=== PATIENT | female | born 1985 | race Caucasian/White ===

== ENCOUNTER → 2017-03-21 | Outpatient (CLI) | payer BC ==
[2017-03-21 08:09] LABS: ALT 41 U/L (9-52); AST 24 U/L (14-36)
--- NOTE | 2017-03-21 09:06 | US ---
EXAMINATION TYPE: US abdomen limited DATE OF EXAM: 03/21/2017 COMPARISON: NONE CLINICAL HISTORY: R10.11 abd pain. RUQ pain, patient is 18 weeks EXAM MEASUREMENTS: Liver Length: 13.7 cm Gallbladder Wall: 0.3 cm CBD: 0.3 cm Right Kidney: 11.6 x 3.8 x 4.1 cm Pancreas: limited evaluation due to overlying bowel content Liver: visualized portions appear wnl Gallbladder: no evidence of stones Evidence for sonographic Alston's sign: no CBD: wnl Right Kidney: no evidence of hydronephrosis or mass IMPRESSION: Unremarkable limited abdominal ultrasound with homogeneous hepatic echotexture and no rios dence of right-sided hydronephrosis. No sonographic evidence of cholelithiasis or acute cholecystitis .
== END | disposition home or self-care (01) ==
LOC: RADUSWWP 06:49
PROVIDERS: ATTEND Obstetrics & Gynecology
DX: O26.892 Other specified pregnancy related conditions, second trimester (principal); Z3A.18 18 weeks gestation of pregnancy
CPT/HCPCS: 76705; 84450; 84460

== ENCOUNTER 2017-08-19 15:43 | Inpatient (IN) | payer BC ==
[2017-08-22] MEDS ORDERED: OXYTOCIN 10 UNIT/ML 1 ML VIAL IM PRN (06:19)
[2017-08-22] MEDS ORDERED: METHYLERGONOVINE 0.2 MG/ML 1 ML AMP IM PRN (06:19)
[2017-08-22] MEDS ORDERED: TERBUTALINE 1 MG/ML VIAL SQ PRN (06:19)
[2017-08-22] MEDS ORDERED: CARBOPROST TROMETHAMINE 250 MCG/ML 1 ML AMP IM PRN (06:19)
[2017-08-22] MEDS ORDERED: LIDOCAINE 1% (PF) 10 MG/ML (30 ML SDV) SQ PRN (06:19)
[2017-08-22 06:33] VITALS: BMI 27.6
[2017-08-22] MEDS: LACTATED RINGERS 1,000 ML IV SCH ×2 (06:34→20:14)
[2017-08-22 06:46] LABS: Basophils % (A) 0 %; Eosinophils # (A) 0.1 k/uL (0-0.7); Eosinophils % (A) 1 %; HCT 38.8 % (34.0-46.0); Lymphocytes # (A) 1.8 k/uL (1.0-4.8); Lymphocytes % (A) 14 %; MCH 33.1 pg (25.0-35.0); MCHC 33.4 g/dL (31.0-37.0); MCV 99.1 fL (80.0-100.0); Mean Platelet Volume 9.1; Monocytes % (A) 8 %; Neutrophils # (A) 9.4 k/uL (1.3-7.7); Neutrophils % (A) 75 %; Platelet Count 201 k/uL (150-450); RBC 3.92 m/uL (3.80-5.40); RDW 12.7 % (11.5-15.5); WBC 12.5 k/uL (3.8-10.6)
[2017-08-22] MEDS ORDERED: BUTORPHANOL 1 MG/ML 1 ML VIAL IV PRN (08:22)
[2017-08-22] MEDS: OXYTOCIN 20 UNITS/1000 ML NS 1,000 ML IV SCH (08:25)
--- NOTE | 2017-08-22 08:28 | P.HPOB ---
History of Present Illness H&P Date: 08/22/17 Chief Complaint: 40-3/7 weeks, oligohydramnios The patient is a 31-year-old 1 para 0 admitted at 40-3/7 weeks as established by last menstrual period and confirmed by 8 week ultrasound. She is admitted for postdates induction of labor having been found with oligohydramnios by ultrasound yesterday, a total amniotic fluid index of 4.5 cm. On admission, heart tones have been relatively flat with occasional subtle late decelerations. At the time of my examination, there is no nonreassuring heart tracing noted. Her has been entirely uncomplicated and group B strep status is negative. We will proceed with a trial of labor. Obstetrical history: 1 para 0 with current statistics listed above. EDC of 08/19/2017 was established by last menstrual period and confirmed by an 8 week ultrasound. Laboratory workup demonstrates a blood type of O+ with a negative antibody screen. Rubella status is immune. All other laboratory workup was within normal limits. One hour Glucola was elevated but followed by a normal three-hour glucose tolerance test. Group B strep status is negative. Gynecologic history: Unremarkable with no history of any infections to include STDs. Review of Systems Review of systems is confined to history of present illness. Past Medical History Past Medical History: No Reported History History of Any Multi-Drug Resistant Organisms: None Reported Additional Past Surgical History / Comment(s): Back Surgery 06/20/2016 Past Anesthesia/Blood Transfusion Reactions: No Reported Reaction Past Psychological History: No Psychological Hx Reported Smoking Status: Never smoker Past Alcohol Use History: None Reported Past Drug Use History: None Reported - Past Family History Mother Family Medical History: Diabetes Mellitus Additional Family Medical History / Comment(s): Type II Medications and Allergies Home Medications Medication Instructions Recorded Confirmed Type Pnv No.95/Ferrous Fum/Folic AC 1 tab PO DAILY 08/22/17 08/22/17 History [ Multivitamin Tablet] Allergies Allergy/AdvReac Type Severity Reaction Status Date / Time No Known Allergies Allergy Verified 08/22/17 06:15 Exam - Vital Signs Vital signs: Vital Signs Temp Pulse Resp BP 08/22/17 06:27 96.7 F L 96 16 138/82 Intake and Output 08/21/17 08/22/17 08/22/17 22:59 06:59 14:59 Other: Weight 82.554 kg In general, this is a well-developed, well-nourished white female in no acute distress. Her heart has a regular rhythm and rate without murmur. Her lungs are clear to auscultation bilaterally in all molina. Her abdomen is gravid, nondistended, has normal active bowel sounds, is soft, nontender, and without any palpable masses aside from uterine fundus. Her extremities are without any cyanosis, clubbing, or significant edema and are nontender to palpation bilaterally. Digital cervical examination demonstrates her cervix to be 2-3 cm dilated, 50% effaced, the vertex in presentation at -2 station. Artificial rupture of membranes is carried out demonstrating what appears to be very minimal lightly meconium-stained fluid. Results Result Diagrams: 08/22/17 06:30 Abnormal Lab Results - Last 24 Hours (Table) 08/22/17 Range/Units 06:30 WBC 12.5 H (3.8-10.6) k/uL Neutrophils # 9.4 H (1.3-7.7) k/uL Assessment and Plan (1) Oligohydramnios Current Visit: Yes Status: Acute Code(s): O41.00X0 - OLIGOHYDRAMNIOS, UNSP TRIMESTER, NOT APPLICABLE OR UNSP SNOMED Code(s): 68968957 (2) Post-dates Current Visit: Yes Status: Acute Code(s): O48.0 - POST-TERM SNOMED Code(s): 61862007 Plan: The patient has been admitted for induction of labor. There was some initial concern regarding heart tones but trial of labor will be carried out. Pitocin augmentation will be started and close maternal and surveillance be practiced. Artificial rupture of membranes has been carried out. She is a good candidate for IV or epidural analgesia if she chooses. Should nonreassuring heart tones reappear, the patient and her significant other are aware that we would proceed to delivery.
[2017-08-22] MEDS ORDERED: CITRIC ACID-SODIUM CITRATE 15 ML CUP PO ONE (10:41)
[2017-08-22] MEDS ORDERED: ceFAZolin IN SWFI 2 GM/20 ML SYRINGE IVP ONE (10:41)
[2017-08-22] MEDS ORDERED: ONDANSETRON 4 MG/2 ML VIAL ONE (12:26)
[2017-08-22] MEDS ORDERED: OXYTOCIN 10 UNIT/ML 1 ML VIAL ONE (12:26)
[2017-08-22] MEDS ORDERED: MORPHINE SULFATE (PF) 0.3 MG/0.3 ML SYR ONE (12:26)
[2017-08-22] MEDS ORDERED: KETOROLAC 30 MG/ML 1 ML VIAL ONE (12:26)
[2017-08-22] MEDS ORDERED: NALBUPHINE 10 MG/ML AMPUL ONE (12:26)
[2017-08-22] MEDS ORDERED: Acetaminophen-Codeine 300-30mg TAB PO PRN ×2 (13:18)
[2017-08-22] MEDS ORDERED: METOCLOPRAMIDE 5 MG/ML 2 ML VIAL IVP PRN (13:18)
[2017-08-22] MEDS ORDERED: diphenhydrAMINE 50 MG/ML 1 ML VIAL IVP PRN ×3 (13:18→14:03)
[2017-08-22] MEDS ORDERED: NALOXONE 0.4 MG/ML 1 ML VIAL IV PRN ×2 (13:18→14:03)
[2017-08-22] MEDS ORDERED: ONDANSETRON 4 MG/2 ML VIAL IVP PRN ×2 (13:18→14:03)
[2017-08-22] MEDS ORDERED: ACETAMINOPHEN TAB 325 MG TAB PO PRN (13:18)
[2017-08-22] MEDS ORDERED: ZOLPIDEM 5 MG TAB PO PRN (13:18)
[2017-08-22] MEDS ORDERED: diphenhydrAMINE 50 MG CAP PO PRN (13:18)
[2017-08-22] MEDS ORDERED: LANOLIN CREAM 5 GM TUBE TOPICAL PRN (13:18)
[2017-08-22] MEDS ORDERED: SIMETHICONE 80 MG CHEWABLE PO PRN (13:18)
[2017-08-22] MEDS ORDERED: diphenhydrAMINE 25 MG CAP PO PRN (13:18)
--- NOTE | 2017-08-22 13:27 | P.OP ---
Date of Procedure: 08/22/17 Preoperative Diagnosis: #1. 40-3/7 weeks intrauterine #2. Oligohydramnios #3. intolerance of labor Postoperative Diagnosis: Same plus #4. Occiput transverse position Procedure(s) Performed: #1. Primary low-transverse section Anesthesia: spinal Surgeon: Gaurav Roth Acute Care Nurse #1: Anabel Santiago Estimated Blood Loss (ml): 400 IV fluids (ml): 800 Urine output (ml): 400 Pathology: other (Placenta) Condition: stable Disposition: floor Operative Findings: Preoperatively, the patient had been admitted for postdates induction of labor secondary to oligohydramnios. She underwent artificial rupture of membranes with minimal probable meconium-stained fluid noted. After initiation of Pitocin , heart tones demonstrated repetitive late decelerations requiring the Pitocin to be stopped. A second attempt was made resulting in the same findings. As result, the patient was counseled regarding section to which she agreed. heart tones remained otherwise stable while not on Pitocin. She was taken to the operating room where she was delivered of a viable 6 lbs. 6 oz. baby boy with Apgars of 8 at 1 minute and 9 at 5 minutes delivered in the left occiput transverse position. The placenta was delivered manually, intact, and grossly normal although that was fairly small with a grossly normal three-vessel cord. The uterus, tubes, and ovaries were otherwise normal to inspection though there are some very small, less than half centimeter subserosal fibroid scattered over the fundus and posterior uterus, perhaps 3 in total. Description of Procedure: The patient was prepped and draped in usual fashion after spinal anesthesia was administered by the anesthesiologist. A Pfannenstiel incision was made and extended into the abdominal cavity without difficulty. The bladder was noted to be significantly distal to the intended site of uterine incision and was left intact. A 2 cm incision was made in the transverse plane of the lower uterine segment to enter the uterus at which time moderate meconium-stained fluid was again noted. The incision was extended in both directions using the bandage scissors and bluntly. The head was delivered up and through the incision in the left occiput transverse position where the nose and mouth were thoroughly suctioned on the abdomen. The remainder of the infant was delivered onto the field where the cord was doubly clamped, cut, and the infant passed for resuscitative measures with weight and Apgars as noted above. A segment of cord was doubly clamped, cut, and set aside should cord gases become necessary. The placenta was delivered manually and intact though the membranes remained inside were swept and assessment maneuver. The uterus was exteriorized and the interior cavity of the uterus swept of any remaining placental and membranous fragments. The margins of the incision were grasped with Tomlinson clamps and the incision was closed in 2 layers. The first layer was a running locking stitch of 0 chromic catgut followed by a running imbricating stitch of 0 chromic catgut, each from margin to margin. Any small points of bleeding were made hemostatic with the Bovie. The posterior cul-de-sac was suctioned using a guard and the uterine and ovarian findings were essentially normal as noted above. The uterus was replaced within the abdominal cavity and the gutters swept of any remaining blood, fluid, or clot. The incision was reexamined and any small points of bleeding were again made hemostatic with the Bovie. Once hemostasis was established, the parietal peritoneum was loosely reapproximated and layer of muscles examined and found to be hemostatic. The fascia was closed with a single running stitch of 0 Vicryl proceeding from margin to margin. The subcutaneous tissues were irrigated, made hemostatic with the Bovie , and reapproximated with a running stitch of 30 plain catgut. The skin was reapproximated with a running subcuticular stitch of 4-0 Vicryl followed by half -inch Steri-Strips placed with Mastisol. Estimated blood loss for the case is roughly 400 mL. There were no complications. All sponge, instrument, and needle counts were correct. The patient tolerated the procedure well and proceeded to the recovery room in stable condition. Both mother and infant are resting comfortably in recovery.
[2017-08-22] MEDS ORDERED: OXYTOCIN 20 UNITS/1000 ML NS 1,000 ML IV SCH (13:30)
[2017-08-22] MEDS ORDERED: LACTATED RINGERS 1,000 ML IV SCH (13:30)
[2017-08-22] MEDS ORDERED: MORPHINE SULFATE 4MG/4ML SYRG IVP PRN (14:03)
[2017-08-22] MEDS ORDERED: MORPHINE SULF 5MG/10ML VL IVP PRN (14:03)
[2017-08-22] MEDS ORDERED: KETOROLAC 30 MG/ML 1 ML VIAL IVP PRN (14:03)
[2017-08-22] MEDS: SENNOSIDES-DOCUSATE SODIUM 1 EACH TAB PO SCH (23:40)
[2017-08-23] MEDS: KETOROLAC 30 MG/ML 1 ML VIAL IVP PRN ×2 (00:58→08:45)
[2017-08-23] MEDS: LACTATED RINGERS 1,000 ML IV SCH ×3 (02:56→20:27)
[2017-08-23 07:25] LABS: Basophils % (A) 0 %; Eosinophils # (A) 0.1 k/uL (0-0.7); Eosinophils % (A) 0 %; HCT 33.6 % (34.0-46.0); Lymphocytes # (A) 1.4 k/uL (1.0-4.8); Lymphocytes % (A) 10 %; MCH 32.7 pg (25.0-35.0); MCHC 32.8 g/dL (31.0-37.0); MCV 99.7 fL (80.0-100.0); Mean Platelet Volume 8.8; Monocytes # (A) 0.8 k/uL (0-1.0); Monocytes % (A) 6 %; Neutrophils # (A) 11.5 k/uL (1.3-7.7); Neutrophils % (A) 82 %; Platelet Count 180 k/uL (150-450); RBC 3.37 m/uL (3.80-5.40); RDW 12.5 % (11.5-15.5); WBC 13.9 k/uL (3.8-10.6)
[2017-08-23] MEDS: OXYTOCIN 20 UNITS/1000 ML NS 1,000 ML IV SCH (07:39)
[2017-08-23] MEDS: SENNOSIDES-DOCUSATE SODIUM 1 EACH TAB PO SCH ×2 (08:17→20:08)
--- NOTE | 2017-08-23 08:35 | P.PNOBGPC ---
Subjective - Subjective Patient reports: Reports appetite normal, Reports voiding normally, Reports pain well controlled, Reports ambulating normally : doing well, nursing well Objective - Vital Signs Latest vital signs: Vital Signs Temp Pulse Resp BP Pulse Ox 08/23/17 08:00 16 97 08/23/17 07:51 98.1 F 88 110/63 08/23/17 06:00 16 08/23/17 04:00 98.2 F 84 16 116/61 98 08/23/17 02:00 18 08/23/17 00:00 98.3 F 89 18 121/69 96 08/22/17 22:00 16 08/22/17 20:00 97.8 F 94 16 122/75 98 08/22/17 18:00 16 08/22/17 15:23 97.5 F L 93 14 128/62 08/22/17 15:03 16 08/22/17 14:53 94 14 122/58 08/22/17 14:21 89 16 130/79 08/22/17 14:08 99 16 130/70 08/22/17 14:03 16 96 08/22/17 13:53 90 16 131/56 08/22/17 13:35 96 16 134/72 08/22/17 13:23 97.2 F L 83 16 116/52 Intake and Output 08/22/17 08/23/17 08/23/17 22:59 06:59 14:59 Intake Total 1500 Output Total 300 350 450 Balance 1200 -350 -450 Intake: IV 1500 Lactated Ringers 1,000 ml 1500 @ 125 mls/hr IV .Q8H [facility] Rx#:[id number] Output: Urine 300 350 450 Uretheral (Ahn) 300 Other: Voiding Method Indwelling Catheter # Voids 1 2 - Exam Extremities: Present: normal Abdomen: Present: normal appearance, soft. Absent: distention, tenderness Incision: Present: normal, dry, intact Uterus: Present: normal, firm (The uterine fundus as tonic and nontender below the umbilicus.) - Labs Labs: Abnormal Lab Results - Last 24 Hours (Table) 08/23/17 Range/Units 07:04 WBC 13.9 H (3.8-10.6) k/uL RBC 3.37 L (3.80-5.40) m/uL Hgb 11.0 L (11.4-16.0) gm/dL Hct 33.6 L (34.0-46.0) % Neutrophils # 11.5 H (1.3-7.7) k/uL Assessment and Plan (1) Oligohydramnios Current Visit: Yes Status: Acute Code(s): O41.00X0 - OLIGOHYDRAMNIOS, UNSP TRIMESTER, NOT APPLICABLE OR UNSP SNOMED Code(s): 63615827 (2) Post-dates Current Visit: Yes Status: Acute Code(s): O48.0 - POST-TERM SNOMED Code(s): 87529857 (3) S/P section Current Visit: Yes Status: Acute Code(s): Z98.891 - HISTORY OF UTERINE SCAR FROM PREVIOUS SURGERY SNOMED Code(s): 183909975 Plan: Continue routine postoperative and care. I would anticipate probable discharge home tomorrow pending no complications. I have encouraged her to walk in the hallways at least 4 times daily, if not more.
[2017-08-23] MEDS: IBUPROFEN 600 MG TAB PO PRN (15:25)
--- NOTE | 2017-08-23 21:02 | P.PN ---
Progress Note - Text Date:08/23 Time:2031 Patient is status post . Patient seen this morning with VAS score of 4. c/o of pruritus, c/o nausea/vomiting.she is comfortable and doing well today.
[2017-08-24] MEDS: IBUPROFEN 600 MG TAB PO PRN ×2 (01:01→07:24)
[2017-08-24] MEDS: SENNOSIDES-DOCUSATE SODIUM 1 EACH TAB PO SCH (07:24)
[2017-08-24 07:53] VITALS: BP 108/69; PULSE 82; RESP 18; TEMP 97.7
--- NOTE | 2017-08-24 10:56 | P.DS ---
Providers Date of admission: 08/22/17 06:10 Expected date of discharge: 08/24/17 Attending physician: Gaurav Roth Primary care physician: Lee Ann Guallpa - Discharge Diagnosis(es) (1) Oligohydramnios Current Visit: Yes Status: Acute (2) Post-dates Current Visit: Yes Status: Acute (3) S/P section Current Visit: Yes Status: Acute Hospital Course: The patient is a 31-year-old 1 para 0 admitted at 40-3/7 weeks by good dating parameters perches admitted for postdates induction of labor having been found with oligohydramnios the. On admission and with onset of Pitocin augmentation, heart tones were noted to have repetitive late decelerations prompting stoppage of Pitocin. The fetus recovered without difficulty to a reassuring heart tracing at which time Pitocin was again reinitiated. The patient had undergone artificial rupture of membranes shortly after admission. Once again, heart tones became nonreassuring with repetitive late decelerations. As result, the induction was halted and the patient taken the operating room for primary low-transverse section for the diagnosis of intolerance of labor. She was delivered of a viable 6 lbs. 6 oz. baby boy with Apgars of 8 at 1 minute and 9 at 5 minutes. Her postoperative course was unremarkable vital signs remaining stable and her temperature was afebrile throughout. She was deemed stable for discharge by post operative day #2 was discharged home to follow-up in the office in 6 weeks ' time routinely. Discharge instructions included calling for any significantly increased bleeding or foul-smelling lochia, significantly increased fever or abdominal pain, perineal complaints, breast complaints, incisional complaints, or anything else that concerned her. She was additionally instructed to have nothing in the vagina for at least 6 weeks time to include intercourse. She was to do no heavy lifting over the same period of time. She was less than to do no driving until off of all pain medications or 2 weeks' time, whichever came first. She understood all of her instructions and agrees to follow up as noted above. Discharge medications included continued vitamins as she has opted to breast-feed. She was otherwise provided a prescription for a dual electric breast pump and a prescription for Tylenol 3, 1-2 by mouth every 6 hours when necessary pain, #30 dispensed with no refills. Maternal blood type is O+ and rubella status is immune. Discharge hemoglobin and hematocrit were 11.0 and 33.6 respectively. Procedures: #1. Pitocin induction #2. Artificial rupture of membranes #3. Mary low transverse section Patient Condition at Discharge: Good Plan - Discharge Summary New Discharge Prescriptions: No Action Pnv No.95/Ferrous Fum/Folic AC [ Multivitamin Tablet] 1 tab PO DAILY Discharge Medication List Pnv No.95/Ferrous Fum/Folic AC [ Multivitamin Tablet] 1 tab PO DAILY 03/31 [History] Follow up Appointment(s)/Referral(s): Gaurav Roth MD [STAFF PHYSICIAN] - 2 Weeks Discharge Disposition: HOME SELF-CARE
== END 2017-08-24 13:30 | disposition home or self-care (01) | DRG 765 ==
LOC: 4FBP 08-22 06:10
PROVIDERS: ADMIT Obstetrics & Gynecology; ATTEND Obstetrics & Gynecology
PROC: 10907ZC Drainage of Amniotic Fluid, Therapeutic from Products of Conception, Via Natural or Artificial Opening (ICD-10-PCS; principal; 2017-08-22 12:00)
PROC: 3E033VJ Introduction of Other Hormone into Peripheral Vein, Percutaneous Approach (ICD-10-PCS; principal; 2017-08-22 12:00)
PROC: 10D00Z1 Extraction of Products of Conception, Low, Open Approach (ICD-10-PCS; principal; 2017-08-22 12:00)
DX: O76 Abnormality in fetal heart rate and rhythm complicating labor and delivery (principal); O41.03X0 Oligohydramnios, third trimester, not applicable or unspecified; O48.0 Post-term pregnancy; Z37.0 Single live birth; Z3A.40 40 weeks gestation of pregnancy; Z83.3 Family history of diabetes mellitus; Z87.891 Personal history of nicotine dependence; Z98.890 Other specified postprocedural states
CPT/HCPCS: 85025; 88307

== ENCOUNTER → 2023-12-27 | Outpatient (CLI) | payer BC | END | disposition home or self-care (01) | LOC: LABPRL 08:08 | PROVIDERS: ATTEND Family Medicine | DX: Z13.220 Encounter for screening for lipoid disorders (principal); F43.22 Adjustment disorder with anxiety | CPT/HCPCS: 80053; 80061; 85025 ==